=== PATIENT | male | born 1970 | race American Indian/Alaskan Native ===

== ENCOUNTER 2019-04-20 01:04 | Inpatient (IN) | payer BC, OTHER ==
[2019-04-20 01:35] LABS: Basophils # (Auto) 0.1 K/mm3 (0.0-0.1); Basophils % (Auto) 0.7 % (0.0-1.8); Eosinophils # (Auto) 0.1 K/mm3 (0.0-0.4); Eosinophils % (Auto) 1.2 % (0.0-4.3); Hematocrit 39.2 % (35.5-45.6); Hemoglobin 13.3 gm/dl (11.8-15.2); Lymphocytes # (Auto) 1.5 K/mm3 (1.2-5.4); Lymphocytes % (Auto) 18.4 % (13.4-35.0); Mean Corpuscular HGB Conc 34 % (32-34); Mean Corpuscular Volume 93 fl (84-94); Monocytes % (Auto) 12.3 % (0.0-7.3); Platelet Count 346 K/mm3 (140-440); Red Blood Count 4.19 M/mm3 (3.65-5.03); Red Cell Distribution Width 13.8 % (13.2-15.2)
[2019-04-20 01:53] LABS: BUN/Creatinine Ratio 22; Blood Urea Nitrogen 24 mg/dL (9-20); Calcium 9.7 mg/dL (8.4-10.2); Hemolysis Index 17
--- NOTE | 2019-04-20 02:28 | Emergency Department Report ---
ED Chest Pain HPI - General Chief Complaint: Chest Pain Stated Complaint: CHEST PAINS Time Seen by Provider: 04/20/19 02:07 Source: patient Mode of arrival: Ambulatory Limitations: No Limitations - History of Present Illness Initial Comments: 49-year-old male with a past medical history of hypertension presents to the hospital with complaints of left-sided chest pain 3 days. Pain is at the left lateral chest wall and described as sharp and rated 8/10 in intensity. Pain is constant and worse with coughing. Pain is relieved by ibuprofen and pain is currently 0/10 after taking med prior to arrival. He denies pain radiation, shortness of breath, nausea, vomiting, diaphoresis, calf tenderness, leg edema, or history of PE/DVT. Patient states his mother of "heart problems" in her 60s. Patient denies tobacco use but does smoke marijuana. He has never received a stress test. He does have a primary care doctor and has been compliant with his lisinopril for his blood pressure. Patient denies any hemoptysis, night sweats, fever, or recent weight loss. He does not smoke cigarettes. - Related Data Home Medications Medication Instructions Recorded Confirmed Last Taken No Known Home Medications [No 01/08/16 01/08/16 Unknown Reported Home Medications] Allergies Allergy/AdvReac Type Severity Reaction Status Date / Time No Known Allergies Allergy Verified 01/08/16 16:37 Heart Score - HEART Score History: Slightly suspicious EKG: Non-specific Age: 45-65 Risk factors: 1-2 risk factors Troponin: < normal limit HEART Score: 3 ED Review of Systems ROS: Stated complaint: CHEST PAINS Other details as noted in HPI Comment: All other systems reviewed and negative ED Past Medical Hx - Past Medical History Previous Medical History?: Yes Hx Hypertension: Yes - Surgical History Past Surgical History?: No - Social History Smoking Status: Never Smoker Substance Use Type: Marijuana - Medications Home Medications: Home Medications Medication Instructions Recorded Confirmed Last Taken Type No Known Home Medications [No 01/08/16 01/08/16 Unknown History Reported Home Medications] ED Physical Exam - General Limitations: No Limitations - Other Other exam information: General: No limitations, patient is alert in no acute distress Head exam: Atraumatic, normocephalic Eyes exam: Normal appearance ENT: Moist mucous membrane Neck exam: Normal inspection, full range of motion, no meningismus nontender Respiratory exam: Clear to auscultation bilateral, no wheezes, rales, crackles Cardiovascular: Normal rate and rhythm, normal heart sounds, chest wall nontender at this time since patient took an ibuprofen Abdomen: Soft, nondistended, and nontender, with normal bowel sounds, no rebound, or guarding Extremity: Full range of motion normal inspection no deformity, no calf tenderness or leg edema Back: Normal Inspection, full range of motion, no tenderness Neurologic: Alert, oriented x3, cranial nerves intact, no motor or sensory deficit Psychiatric: normal affect, normal mood Skin: Warm, dry, intact ED Course Vital Signs 04/20/19 04/20/19 01:11 02:50 Temperature 98.1 F Pulse Rate 86 Respiratory 18 19 Rate Blood Pressure 117/72 O2 Sat by Pulse 98 96 Oximetry - Reevaluation(s) Reevaluation #1: 04/20/19 05:40 pt had intermittent left sided cp - Consultations Consultation #1: 04/20/19 05:40 Case discussed with lugger is Dr. Simon. Recommends admission to rule out TB ED Medical Decision Making - Lab Data Result diagrams: 04/20/19 01:28 04/20/19 01:17 Lab Results 04/20/19 04/20/19 04/20/19 Range/Units 01:17 01:28 02:30 WBC 8.3 (4.5-11.0) K/mm3 RBC 4.19 (3.65-5.03) M/mm3 Hgb 13.3 (11.8-15.2) gm/dl Hct 39.2 (35.5-45.6) % MCV 93 (84-94) fl MCH 32 (28-32) pg MCHC 34 (32-34) % RDW 13.8 (13.2-15.2) % Plt Count 346 (140-440) K/mm3 Lymph % (Auto) 18.4 (13.4-35.0) % [place] % (Auto) 12.3 H (0.0-7.3) % Eos % (Auto) 1.2 (0.0-4.3) % Baso % (Auto) 0.7 (0.0-1.8) % Lymph # 1.5 (1.2-5.4) K/mm3 [place] # 1.0 H (0.0-0.8) K/mm3 Eos # 0.1 (0.0-0.4) K/mm3 Baso # 0.1 (0.0-0.1) K/mm3 Seg Neutrophils % 67.4 (40.0-70.0) % Seg Neutrophils # 5.6 (1.8-7.7) K/mm3 D-Dimer 393.10 H (0-234) ng/mlDDU Sodium 136 L (137-145) mmol/L Potassium 4.1 (3.6-5.0) mmol/L Chloride 95.7 L (98-107) mmol/L Carbon Dioxide 24 (22-30) mmol/L Anion Gap 20 mmol/L BUN 24 H (9-20) mg/dL Creatinine 1.1 (0.8-1.5) mg/dL Estimated GFR > 60 ml/min BUN/Creatinine Ratio 22 % Glucose 171 H (75-100) mg/dL Calcium 9.7 (8.4-10.2) mg/dL Troponin T < 0.010 (0.00-0.029) ng/mL 04/20/19 Range/Units 04:37 WBC (4.5-11.0) K/mm3 RBC (3.65-5.03) M/mm3 Hgb (11.8-15.2) gm/dl Hct (35.5-45.6) % MCV (84-94) fl MCH (28-32) pg MCHC (32-34) % RDW (13.2-15.2) % Plt Count (140-440) K/mm3 Lymph % (Auto) (13.4-35.0) % [place] % (Auto) (0.0-7.3) % Eos % (Auto) (0.0-4.3) % Baso % (Auto) (0.0-1.8) % Lymph # (1.2-5.4) K/mm3 [place] # (0.0-0.8) K/mm3 Eos # (0.0-0.4) K/mm3 Baso # (0.0-0.1) K/mm3 Seg Neutrophils % (40.0-70.0) % Seg Neutrophils # (1.8-7.7) K/mm3 D-Dimer (0-234) ng/mlDDU Sodium (137-145) mmol/L Potassium (3.6-5.0) mmol/L Chloride (98-107) mmol/L Carbon Dioxide (22-30) mmol/L Anion Gap mmol/L BUN (9-20) mg/dL Creatinine (0.8-1.5) mg/dL Estimated GFR ml/min BUN/Creatinine Ratio % Glucose (75-100) mg/dL Calcium (8.4-10.2) mg/dL Troponin T < 0.010 (0.00-0.029) ng/mL - EKG Data -: EKG Interpreted by De EKG shows normal: sinus rhythm, axis (qrs 85), QRS complexes (qrsd 94), ST-T waves (diffuse mild st elevation, no stemi) Rate: normal - Radiology Data Radiology results: report reviewed PROCEDURE: CT ANGIO CHEST TECHNIQUE: Computerized tomographic angiography of the chest was performed after the IV injection of iodinated nonionic contrast including image processing. The image data was postprocessed using 2-dimensional multiplanar reformatted (MPR) and 3-dimensional (MIP and/or volume rendered) techniques. Automated exposure control, adjustment of mA and/or kV according to patient size, or iterative reconstruction dose optimization techniques were utilized. HISTORY: left sided sharp cp COMPARISONS: None . FINDINGS: Normal caliber main pulmonary artery. Well opacified pulmonary arterial tree. No pulmonary embolism. No pericardial effusion. Thoracic aorta is normal in course and caliber. No periaortic fluid or stranding. No pneumothorax or effusion. In the lingula and left lower lung on axial series 2, images 7, respectively, there are 2 thick-walled cavitary lesions measuring up to 1 cm. A right lung nodule within the minor fissure on axial image 65 measures up to 5 mm and is benign based on location. The central airways are patent. No bronchiectasis. Imaged portion of the upper abdomen is unremarkable. The superficial soft tissues are unremarkable. No acute bony abnormality or worrisome osseous lesions identified. IMPRESSION: No pulmonary embolism. There are 2 relatively thick-walled 1 cm cavitary nodules in the left lung. Most likely etiology is infectious or inflammatory, with malignancy thought less likely. Specific entities to consider include tuberculosis, necrobiotic/rheumatoid nodules, and granulomatosis with polyangiitis. Pulmonology follow-up is suggested. PROCEDURE: XR CHEST 1V AP TECHNIQUE: Chest radiograph single view. HISTORY: Chest Pain COMPARISONS: None . FINDINGS: Heart: Normal. Mediastinum/Vessels: Normal. Lungs/Pleural space: Lungs are expanded. There are no effusions or pneumothoraces. There are no infiltrates. There are 2 discrete nodular densities in the left lung measuring up to [address] may be indicated for further characterization.. Bony thorax: No acute osseous abnormality. Life support devices: None. IMPRESSION: Heart size is normal. Lungs are expanded. There are no effusions or pneumothoraces. There are no infiltrates. There are 2 discrete nodular densities in the left lung measuring up to [address] may be indicated for further characterization. - Medical Decision Making case d/w Dr Alfred segura isolation ordered for possible tb hospitalist informed not signs of stemi. trop neg x 2 - Differential Diagnosis msk pain, pe, mi,unstable angina Critical Care Time: No Critical care attestation.: If time is entered above; I have spent that time in minutes in the direct care of this critically ill patient, excluding procedure time. ED Disposition Clinical Impression: Left-sided chest pain, Cavitary lesion of lung, HTN (hypertension), Marijuana use Disposition: OP ADMIT IP TO THIS HOSP Is pt being admited?: Yes Condition: Stable Time of Disposition: 05:46 (Dr Tavarez/hosp)
--- NOTE | 2019-04-20 02:28 | XRay Report ---
PROCEDURE: XR CHEST 1V AP TECHNIQUE: Chest radiograph single view. HISTORY: Chest Pain COMPARISONS: None . FINDINGS: Heart: Normal. Mediastinum/Vessels: Normal. Lungs/Pleural space: Lungs are expanded. There are no effusions or pneumothoraces. There are no infi ltrates. There are 2 discrete nodular densities in the left lung measuring up to [address] may be ind icated for further characterization.. Bony thorax: No acute osseous abnormality. Life support devices: None. IMPRESSION: Heart size is normal. Lungs are expanded. There are no effusions or pneumothoraces. There are no infiltrates. There are 2 discrete nodular densities in the left lung measuring up to [address] may be indicated fo r further characterization. This document is electronically signed by Judd Ray MD., Apr 20 2019 02:26:49 AM ET
[2019-04-20] MEDS ORDERED: NACL 0.9% 1000 ML 1,000 ML IV ONE (03:58)
--- NOTE | 2019-04-20 05:11 | Cat Scan Report ---
PROCEDURE: CT ANGIO CHEST TECHNIQUE: Computerized tomographic angiography of the chest was performed after the IV injection of iodinated nonionic contrast including image processing. The image data was postprocessed using 2-di mensional multiplanar reformatted (MPR) and 3-dimensional (MIP and/or volume rendered) techniques. Au tomated exposure control, adjustment of mA and/or kV according to patient size, or iterative reconstr uction dose optimization techniques were utilized. HISTORY: left sided sharp cp COMPARISONS: None . FINDINGS: Normal caliber main pulmonary artery. Well opacified pulmonary arterial tree. No pulmonary embolism . No pericardial effusion. Thoracic aorta is normal in course and caliber. No periaortic fluid or stranding. No pneumothorax or effusion. In the lingula and left lower lung on axial series 2, images 7, respecti vely, there are 2 thick-walled cavitary lesions measuring up to 1 cm. A right lung nodule within the minor fissure on axial image 65 measures up to 5 mm and is benign based on location. The central airw ays are patent. No bronchiectasis. Imaged portion of the upper abdomen is unremarkable. The superficial soft tissues are unremarkable. No acute bony abnormality or worrisome osseous lesions identified. IMPRESSION: No pulmonary embolism. There are 2 relatively thick-walled 1 cm cavitary nodules in the left lung. Most likely etiology is i nfectious or inflammatory, with malignancy thought less likely. Specific entities to consider include tuberculosis, necrobiotic/rheumatoid nodules, and granulomatosis with polyangiitis. Pulmonology foll ow-up is suggested. This document is electronically signed by Jun Ruano MD., Apr 20 2019 05:09:51 AM ET
--- NOTE | 2019-04-20 06:19 | History and Physical Report ---
<KRISHNA BABIN - Last Filed: 04/20/19 06:50> History of Present Illness Date of examination: 04/20/19 Date of admission: 04/20/2019 Chief complaint: Chest pain 3 days History of present illness: Patient is a 49-year-old male with PMH of HTN (for wich he takes Lisinopril), who presents to the ER with complaints of chest pain 3 days. Patient states that the pain is relief with ibuprofen, and position changed, it is reproducible when pressing on the left side of the chest. Patient denies any radiation of the pain, fever or chills, he denies nausea, denies vomiting, denies diaphoresis, denies calf tenderness, denies leg pain. Pt states that he had a very heavy work on Tuesday, he lifted a lot of heavy weights including greater than 100 pounds by himself, the pain started the following day. He reports minor cough, denies any acute illness, any history of CAD, diabetes or blood clot, or history of PE/DVT he denies hemoptysis, then once night sweats, denies recent weight loss. Pt denies tobacco use but states that he uses marijuana. Patient had the 60s of the chest which showed the cavitary lesions, he is admitted and placed on TB precautions. Past History Past Medical History: hypertension Past Surgical History: No surgical history Social history: no significant social history Family history: no significant family history Medications and Allergies Allergies Allergy/AdvReac Type Severity Reaction Status Date / Time No Known Allergies Allergy Verified 01/08/16 16:37 Home Medications Medication Instructions Recorded Confirmed Last Taken Type Lisinopril [Zestril TAB] 10 mg PO QDAY 04/20/19 04/20/19 1 Day Ago History ~04/19/19 Review of Systems Cardiovascular: chest pain Respiratory: cough Exam - Constitutional Vitals: Temp Pulse Resp BP Pulse Ox 98.1 F 61 13 133/88 100 04/20/19 01:11 04/20/19 05:30 04/20/19 05:45 04/20/19 05:45 04/20/19 05:45 General appearance: Present: no acute distress - EENT Eyes: Present: PERRL ENT: hearing intact - Respiratory Respiratory effort: normal Respiratory: bilateral: CTA - Cardiovascular Rhythm: regular Heart Sounds: Present: S1 & S2 - Extremities Extremities: no ischemia, No edema Peripheral Pulses: within normal limits - Abdominal General gastrointestinal: Present: non-tender, non-distended Male genitourinary: Present: deferred - Rectal Rectal Exam: deferred - Integumentary Integumentary: Present: clear, warm, dry - Musculoskeletal Musculoskeletal: left sided weakness - Psychiatric Psychiatric: appropriate mood/affect - Neurologic Neurologic: moves all extremities Results - Labs CBC & Chem 7: 04/20/19 01:28 04/20/19 01:17 Labs: Laboratory Last Values WBC 8.3 K/mm3 (4.5-11.0) 04/20/19 01:28 RBC 4.19 M/mm3 (3.65-5.03) 04/20/19 01:28 Hgb 13.3 gm/dl (11.8-15.2) 04/20/19 01:28 Hct 39.2 % (35.5-45.6) 04/20/19 01:28 MCV 93 fl (84-94) 04/20/19 01:28 MCH 32 pg (28-32) 04/20/19 01:28 MCHC 34 % (32-34) 04/20/19 01:28 RDW 13.8 % (13.2-15.2) 04/20/19 01:28 Plt Count 346 K/mm3 (140-440) 04/20/19 01:28 Lymph % (Auto) 18.4 % (13.4-35.0) 04/20/19 01:28 [place] % (Auto) 12.3 % (0.0-7.3) H 04/20/19 01:28 Eos % (Auto) 1.2 % (0.0-4.3) 04/20/19 01:28 Baso % (Auto) 0.7 % (0.0-1.8) 04/20/19 01:28 Lymph # 1.5 K/mm3 (1.2-5.4) 04/20/19 01:28 [place] # 1.0 K/mm3 (0.0-0.8) H 04/20/19 01:28 Eos # 0.1 K/mm3 (0.0-0.4) 04/20/19 01:28 Baso # 0.1 K/mm3 (0.0-0.1) 04/20/19 01:28 Seg Neutrophils % 67.4 % (40.0-70.0) 04/20/19 01:28 Seg Neutrophils # 5.6 K/mm3 (1.8-7.7) 04/20/19 01:28 393.10 ng/mlDDU (0-234) H 04/20/19 02:30 Sodium 136 mmol/L (137-145) L 04/20/19 01:17 Potassium 4.1 mmol/L (3.6-5.0) 04/20/19 01:17 Chloride 95.7 mmol/L (98-107) L 04/20/19 01:17 Carbon Dioxide 24 mmol/L (22-30) 04/20/19 01:17 20 mmol/L 04/20/19 01:17 BUN 24 mg/dL (9-20) H 04/20/19 01:17 1.1 mg/dL (0.8-1.5) 04/20/19 01:17 Estimated GFR > 60 ml/min 04/20/19 01:17 22 % 04/20/19 01:17 Glucose 171 mg/dL (75-100) H 04/20/19 01:17 Calcium 9.7 mg/dL (8.4-10.2) 04/20/19 01:17 < 0.010 ng/mL (0.00-0.029) 04/20/19 04:37 Assessment and Plan Assessment and plan: 1. Atypical chest pain (rule out pericarditis versus costochondritis) 2. Hypertension (stable 3. Cavitary lesion (r/o TB) Plan: Patient is admitted for chest pain Cardiac enzymes every 6 hours 3 Morphine when necessary for pain AFB to r/o TB Patient counselled on HIV testing Patient will need ID consult if it is positive Plan pf care was discussed with patient, voiced understanding Advance Directives: Yes VTE prophylaxis?: Chemical Contraindication Mechanical VTE Prophylaxis: Contraindicated Plan of care discussed with patient/family: Yes <MAL CRAMER - Last Filed: 04/21/19 03:14> History of Present Illness Date of admission: 04/20/19 06:28 Medications and Allergies Active Meds: Active Medications Acetaminophen (Tylenol) 650 mg PO Q4H PRN PRN Reason: Pain MILD(1-3)/Fever >100.5/PELAYO Aspirin (Ecotrin) 325 mg PO QDAY [place]ARA Piperacillin Sod/Tazobactam Sod (Zosyn/Ns 4.5gm/100ml) 4.5 gm in 100 mls @ 200 mls/hr IV Q8HR [facility]; Protocol Last Admin: 04/20/19 21:26 Dose: 200 mls/hr Documented by: Morphine Sulfate (Morphine) 2 mg IV Q5MIN PRN PRN Reason: Chest Pain unrelieved by NTG Last Admin: 04/20/19 17:30 Dose: 2 mg Documented by: Nitroglycerin (Nitrostat) 0.4 mg SL Q5M PRN PRN Reason: Chest Pain Ondansetron HCl (Zofran) 4 mg IV Q8H PRN PRN Reason: Nausea And Vomiting Sodium Chloride (Sodium Chloride Flush Syringe 10 Ml) 10 ml IV BID [facility] Last Admin: 04/20/19 21:26 Dose: 10 ml Documented by: Sodium Chloride (Sodium Chloride Flush Syringe 10 Ml) 10 ml IV PRN PRN PRN Reason: LINE FLUSH Sodium Chloride (Sodium Chloride Flush Syringe 10 Ml) 10 ml IV PRN PRN PRN Reason: LINE FLUSH Exam - Constitutional Vitals: Temp Pulse Resp BP Pulse Ox 98.8 F 61 16 115/79 98 04/20/19 22:52 04/20/19 23:52 04/20/19 22:52 04/20/19 22:52 04/20/19 22:52 Results - Labs CBC & Chem 7: 04/20/19 06:51 04/20/19 06:51 Labs: Laboratory Last Values WBC 8.2 K/mm3 (4.5-11.0) 04/20/19 06:51 RBC 3.90 M/mm3 (3.65-5.03) 04/20/19 06:51 Hgb 12.5 gm/dl (11.8-15.2) 04/20/19 06:51 Hct 35.8 % (35.5-45.6) 04/20/19 06:51 MCV 92 fl (84-94) 04/20/19 06:51 MCH 32 pg (28-32) 04/20/19 06:51 MCHC 35 % (32-34) H 04/20/19 06:51 RDW 13.9 % (13.2-15.2) 04/20/19 06:51 Plt Count 313 K/mm3 (140-440) 04/20/19 06:51 Lymph % (Auto) 28.7 % (13.4-35.0) 04/20/19 06:51 [place] % (Auto) 14.8 % (0.0-7.3) H 04/20/19 06:51 Eos % (Auto) 1.8 % (0.0-4.3) 04/20/19 06:51 Baso % (Auto) 0.9 % (0.0-1.8) 04/20/19 06:51 Lymph # 2.3 K/mm3 (1.2-5.4) 04/20/19 06:51 [place] # 1.2 K/mm3 (0.0-0.8) H 04/20/19 06:51 Eos # 0.1 K/mm3 (0.0-0.4) 04/20/19 06:51 Baso # 0.1 K/mm3 (0.0-0.1) 04/20/19 06:51 Seg Neutrophils % 53.8 % (40.0-70.0) 04/20/19 06:51 Seg Neutrophils # 4.4 K/mm3 (1.8-7.7) 04/20/19 06:51 393.10 ng/mlDDU (0-234) H 04/20/19 02:30 Sodium 136 mmol/L (137-145) L 04/20/19 06:51 Potassium 4.0 mmol/L (3.6-5.0) 04/20/19 06:51 Chloride 98.5 mmol/L (98-107) 04/20/19 06:51 Carbon Dioxide 24 mmol/L (22-30) 04/20/19 06:51 18 mmol/L 04/20/19 06:51 BUN 23 mg/dL (9-20) H 04/20/19 06:51 1.1 mg/dL (0.8-1.5) 04/20/19 06:51 Estimated GFR > 60 ml/min 04/20/19 06:51 21 % 04/20/19 06:51 Glucose 92 mg/dL (75-100) 04/20/19 06:51 5.8 % (4-6) 04/20/19 06:51 Calcium 8.9 mg/dL (8.4-10.2) 04/20/19 06:51 < 0.010 ng/mL (0.00-0.029) 04/20/19 17:30 Triglycerides 48 mg/dL (2-149) 04/20/19 06:51 Cholesterol 158 mg/dL (50-199) 04/20/19 06:51 102 mg/dL (50-130) 04/20/19 06:51 54 mg/dL (40-59) 04/20/19 06:51 2.92 % 04/20/19 06:51 Assessment and Plan Assessment and plan: I personally discussed the patient with the ASSISTANT CHIEF NURSING OFFICER-C. I agree with the above assessment and plan
[2019-04-20] MEDS ORDERED: NITROSTAT SL PRN (06:28)
[2019-04-20] MEDS ORDERED: SODIUM CHLORIDE FLUSH SYRINGE 10 ML IV PRN ×2 (06:28)
[2019-04-20] MEDS ORDERED: TYLENOL PO PRN (06:28)
[2019-04-20] MEDS ORDERED: ZOFRAN IV PRN (06:28)
[2019-04-20 07:09] LABS: Basophils # (Auto) 0.1 K/mm3 (0.0-0.1); Basophils % (Auto) 0.9 % (0.0-1.8); Eosinophils # (Auto) 0.1 K/mm3 (0.0-0.4); Eosinophils % (Auto) 1.8 % (0.0-4.3); Hematocrit 35.8 % (35.5-45.6); Hemoglobin 12.5 gm/dl (11.8-15.2); Lymphocytes # (Auto) 2.3 K/mm3 (1.2-5.4); Lymphocytes % (Auto) 28.7 % (13.4-35.0); Mean Corpuscular HGB Conc 35 % (32-34); Mean Corpuscular Volume 92 fl (84-94); Monocytes # (Auto) 1.2 K/mm3 (0.0-0.8); Monocytes % (Auto) 14.8 % (0.0-7.3); Platelet Count 313 K/mm3 (140-440); Red Cell Distribution Width 13.9 % (13.2-15.2)
[2019-04-20 07:34] LABS: BUN/Creatinine Ratio 21; Blood Urea Nitrogen 23 mg/dL (9-20); Calcium 8.9 mg/dL (8.4-10.2); Chol/HDL Ratio 2.92 %; HDL Cholesterol 54 mg/dL (40-59); Hemolysis Index 10; LDL Cholesterol,Direct 102 mg/dL (50-130)
[2019-04-20] MEDS: SODIUM CHLORIDE FLUSH SYRINGE 10 ML IV SCH ×2 (10:20→21:26)
--- NOTE | 2019-04-20 10:46 | Progress Note ---
Assessment and Plan Assessment and plan: Atypical chest pain. Etiology likely secondary to costochondritis. Pain is reproducible with palpation. Hypertension. Continue antihypertensive medications. Cavitary lesion. Pulmonary consultation pending. Continue isolation. Start empiric IV antibiotics. Consider ID consultation. History Interval history: Patient is a 49-year-old male with PMH of HTN (for wich he takes Lisinopril), who presents to the ER with complaints of chest pain 3 days. Pain is reproducible with palpation to the left chest wall. Hospitalist Physical - Constitutional Vitals: Temp Pulse Resp BP Pulse Ox 98.1 F 61 13 133/88 100 04/20/19 01:11 04/20/19 05:30 04/20/19 05:45 04/20/19 05:45 04/20/19 05:45 General appearance: Present: no acute distress - EENT Eyes: Present: PERRL, EOM intact ENT: hearing intact, clear oral mucosa, dentition normal - Neck Neck: Present: supple, normal ROM - Respiratory Respiratory effort: normal Respiratory: bilateral: CTA - Cardiovascular Rhythm: regular Heart Sounds: Present: S1 & S2. Absent: gallop, rub - Extremities Extremities: no ischemia, No edema, Full ROM - Abdominal General gastrointestinal: soft, non-tender, non-distended, normal bowel sounds - Integumentary Integumentary: Present: clear, warm, dry - Neurologic Neurologic: CNII-XII intact, moves all extremities Results - Labs CBC & Chem 7: 04/20/19 06:51 04/20/19 06:51 Labs: Laboratory Last Values WBC 8.2 K/mm3 (4.5-11.0) 04/20/19 06:51 RBC 3.90 M/mm3 (3.65-5.03) 04/20/19 06:51 Hgb 12.5 gm/dl (11.8-15.2) 04/20/19 06:51 Hct 35.8 % (35.5-45.6) 04/20/19 06:51 MCV 92 fl (84-94) 04/20/19 06:51 MCH 32 pg (28-32) 04/20/19 06:51 MCHC 35 % (32-34) H 04/20/19 06:51 RDW 13.9 % (13.2-15.2) 04/20/19 06:51 Plt Count 313 K/mm3 (140-440) 04/20/19 06:51 Lymph % (Auto) 28.7 % (13.4-35.0) 04/20/19 06:51 [place] % (Auto) 14.8 % (0.0-7.3) H 04/20/19 06:51 Eos % (Auto) 1.8 % (0.0-4.3) 04/20/19 06:51 Baso % (Auto) 0.9 % (0.0-1.8) 04/20/19 06:51 Lymph # 2.3 K/mm3 (1.2-5.4) 04/20/19 06:51 [place] # 1.2 K/mm3 (0.0-0.8) H 04/20/19 06:51 Eos # 0.1 K/mm3 (0.0-0.4) 04/20/19 06:51 Baso # 0.1 K/mm3 (0.0-0.1) 04/20/19 06:51 Seg Neutrophils % 53.8 % (40.0-70.0) 04/20/19 06:51 Seg Neutrophils # 4.4 K/mm3 (1.8-7.7) 04/20/19 06:51 393.10 ng/mlDDU (0-234) H 04/20/19 02:30 Sodium 136 mmol/L (137-145) L 04/20/19 06:51 Potassium 4.0 mmol/L (3.6-5.0) 04/20/19 06:51 Chloride 98.5 mmol/L (98-107) 04/20/19 06:51 Carbon Dioxide 24 mmol/L (22-30) 04/20/19 06:51 18 mmol/L 04/20/19 06:51 BUN 23 mg/dL (9-20) H 04/20/19 06:51 1.1 mg/dL (0.8-1.5) 04/20/19 06:51 Estimated GFR > 60 ml/min 04/20/19 06:51 21 % 04/20/19 06:51 Glucose 92 mg/dL (75-100) 04/20/19 06:51 5.8 % (4-6) 04/20/19 06:51 Calcium 8.9 mg/dL (8.4-10.2) 04/20/19 06:51 < 0.010 ng/mL (0.00-0.029) 04/20/19 06:51 Triglycerides 48 mg/dL (2-149) 04/20/19 06:51 Cholesterol 158 mg/dL (50-199) 04/20/19 06:51 102 mg/dL (50-130) 04/20/19 06:51 54 mg/dL (40-59) 04/20/19 06:51 2.92 % 04/20/19 06:51 Active Medications - Current Medications Current Medications: Generic Name Dose Route Start Last Admin Trade Name Freq PRN Reason Stop Dose Admin Acetaminophen 650 mg 04/20/19 06:28 Tylenol PO Q4H PRN Pain MILD(1-3)/Fever >100.5/PELAYO Aspirin 325 mg 04/21/19 10:00 Ecotrin PO QDAY [facility] Morphine Sulfate 2 mg 04/20/19 06:28 Morphine IV Q5MIN PRN Chest Pain unrelieved by NTG Nitroglycerin 0.4 mg 04/20/19 06:28 Nitrostat SL Q5M PRN Chest Pain Ondansetron HCl 4 mg 04/20/19 06:28 Zofran IV Q8H PRN Nausea And Vomiting Sodium Chloride 10 ml 04/20/19 10:00 Sodium Chloride Flush Syringe 10 Ml IV BID KYARA Sodium Chloride 10 ml 04/20/19 06:28 Sodium Chloride Flush Syringe 10 Ml IV PRN PRN LINE FLUSH Sodium Chloride 10 ml 04/20/19 06:28 Sodium Chloride Flush Syringe 10 Ml IV PRN PRN LINE FLUSH
--- NOTE | 2019-04-20 13:44 | Consultation ---
History of Present Illness Consult date: 04/20/19 Reason for consult: chest pain, abnormal CXR/CT History of present illness: 49-year-old -[place] male, admitted to the hospital with history of chest pain and associated abnormal chest CT scan. The patient reports that he has been working as usual in recent weeks but started with a left-sided almost pleuritic stabbing pain about 2 days ago. This happened while working at [employer] and he thought that this was related to some heavy lifting that day. Symptoms disappear after Advil and [id number] pain medication but they recurred yesterday. He has an occasional cough but no expectoration and he relates this to the fact that he smokes chronically. No hemoptysis reported. No weight loss changes. Chest CT scan was performed at the ER for pain evaluation. Scan was remarkable for 2 small cavitary nodules in the left side subpleural based. Infection or inflammatory process including TB could not be rule out and the patient was admitted for further evaluation. On further review, the patient denies any sinus problems. No new rash. No joint problems. He does report recently that he had a lesion on the inner right side of his mouth that has been sore for a week or two. Past History Past Medical History: hypertension Past Surgical History: No surgical history Social history: no significant social history, other (smokes marijuana) Family history: no significant family history Medications and Allergies Allergies Allergy/AdvReac Type Severity Reaction Status Date / Time No Known Allergies Allergy Verified 01/08/16 16:37 Home Medications Medication Instructions Recorded Confirmed Last Taken Type No Known Home Medications [No 01/08/16 01/08/16 Unknown History Reported Home Medications] Active Meds: Active Medications Acetaminophen (Tylenol) 650 mg PO Q4H PRN PRN Reason: Pain MILD(1-3)/Fever >100.5/PELAYO Aspirin (Ecotrin) 325 mg PO QDAY KYARA Piperacillin Sod/Tazobactam Sod (Zosyn/Ns 4.5gm/100ml) 4.5 gm in 100 mls @ 200 mls/hr IV Q8HR KYARA; Protocol Morphine Sulfate (Morphine) 2 mg IV Q5MIN PRN PRN Reason: Chest Pain unrelieved by NTG Nitroglycerin (Nitrostat) 0.4 mg SL Q5M PRN PRN Reason: Chest Pain Ondansetron HCl (Zofran) 4 mg IV Q8H PRN PRN Reason: Nausea And Vomiting Sodium Chloride (Sodium Chloride Flush Syringe 10 Ml) 10 ml IV BID KYARA Last Admin: 04/20/19 10:20 Dose: 10 ml Documented by: Sodium Chloride (Sodium Chloride Flush Syringe 10 Ml) 10 ml IV PRN PRN PRN Reason: LINE FLUSH Sodium Chloride (Sodium Chloride Flush Syringe 10 Ml) 10 ml IV PRN PRN PRN Reason: LINE FLUSH Review of Systems Constitutional: no weight loss, no fever, no chills, no night sweats, no anorexia, no fatigue, no weakness Ears, nose, mouth and throat: swelling in mouth (see HPI) Cardiovascular: no chest pain, no orthopnea, no palpitations, no rapid/irregular heart beat, no edema, no syncope Respiratory: cough Gastrointestinal: no abdominal pain, no nausea, no vomiting, no diarrhea, no melena, no hematochezia Genitourinary Male: no dysuria, no hematuria, no flank pain, no discharge Musculoskeletal: no neck stiffness, no neck pain, no shooting arm pain, no arm numbness/tingling Physical Examination Vital signs: Vital Signs Temp Pulse Resp BP Pulse Ox 98.1 F 86 18 117/72 98 04/20/19 01:11 04/20/19 01:11 04/20/19 01:11 04/20/19 01:11 04/20/19 01:11 General appearance: no acute distress, alert Eyes: non-icteric ENT: oropharynx moist, other (right-sided inner buccal lesion close to 2th molar area. Some secretions noted) Cardiovascular: regular rate and rhythm Gastrointestinal: normoactive bowel sounds, non-distended Extremities: no cyanosis, no edema Results - Laboratory Findings CBC and BMP: 04/20/19 06:51 04/20/19 06:51 PT/INR, D-dimer 393.10 ng/mlDDU (0-234) H 04/20/19 02:30 Abnormal lab findings: Abnormal Labs 04/20/19 04/20/19 04/20/19 01:17 01:28 02:30 MCHC [place] % (Auto) 12.3 H [place] # 1.0 H D-Dimer 393.10 H Sodium 136 L Chloride 95.7 L BUN 24 H Glucose 171 H 04/20/19 04/20/19 06:51 06:51 MCHC 35 H [place] % (Auto) 14.8 H [place] # 1.2 H D-Dimer Sodium 136 L Chloride BUN 23 H Glucose - Diagnostic Findings Chest x-ray: report reviewed, image reviewed CT scan - chest: report reviewed, image reviewed Assessment and Plan Early cavitary nodules. Differential diagnosis is extensive but in view of clinical finding this could be early low abscesses, secondary to aspiration. I think TB less likely. Necrotizing granulomatous vasculitis, nodular sarcoid are also in the differential diagnosis Ana-gingival abscess THC abuse Recommendations Buccal swap/culture Sputum AFB smear and culture 3 Consider discontinue respiratory isolation, once smears are negative 3 Standard bacterial sputum culture Fungal culture PPD Consider HIV testing ANCA testing MITZI testing If no history of allergy, consider clindamycin or Unasyn Findings discussed with the patient detailed. All questions answered.
[2019-04-20] MEDS: ZOSYN/NS 4.5GM/100ML 4.5 GM/100 ML VIAL IV SCH ×2 (16:32→21:26)
[2019-04-20] MEDS: MORPHINE IV PRN (17:30)
[2019-04-21] MEDS: ZOSYN/NS 4.5GM/100ML 4.5 GM/100 ML VIAL IV SCH ×3 (05:42→22:07)
[2019-04-21 06:18] LABS: Basophils % (Auto) 0.4 % (0.0-1.8); Eosinophils # (Auto) 0.1 K/mm3 (0.0-0.4); Eosinophils % (Auto) 2.3 % (0.0-4.3); Hematocrit 36.8 % (35.5-45.6); Hemoglobin 12.6 gm/dl (11.8-15.2); Lymphocytes # (Auto) 1.5 K/mm3 (1.2-5.4); Lymphocytes % (Auto) 22.8 % (13.4-35.0); Mean Corpuscular HGB Conc 34 % (32-34); Mean Corpuscular Volume 93 fl (84-94); Monocytes % (Auto) 14.9 % (0.0-7.3); Platelet Count 345 K/mm3 (140-440); Red Blood Count 3.97 M/mm3 (3.65-5.03); Red Cell Distribution Width 13.6 % (13.2-15.2)
[2019-04-21 06:36] LABS: BUN/Creatinine Ratio 17; Blood Urea Nitrogen 15 mg/dL (9-20); Calcium 9.2 mg/dL (8.4-10.2); Hemolysis Index 0
[2019-04-21] MEDS: MORPHINE IV PRN (08:49)
--- NOTE | 2019-04-21 10:06 | Progress Note ---
Assessment and Plan Early cavitary nodules. Differential diagnosis is extensive but in view of clinical finding this could be early lung abscesses, secondary to aspiration. I think TB less likely, but needs PPD and AFB smears for further review. Necrotizing granulomatous vasculitis, nodular sarcoid workup ordered Ana-gingival abscess THC abuse Recommendations Buccal swap/culture Sputum AFB smear and culture 3 PPD not order on chart, will order myself or Quantiferon DC respiratory isolation, once smears are negative 3 Standard bacterial sputum culture Fungal culture Consider HIV testing ANCA testing MITZI testing Continue Zosyn Findings discussed with the patient detailed. All questions answered. Subjective Date of service: 04/21/19 Principal diagnosis: pulmonary cavitary nodules, suspected aspiration/abscess Interval history: No fever or chest complains Objective Vital Signs - 12hr 04/20/19 04/20/19 04/21/19 22:52 23:52 03:33 Temperature 98.8 F 98.3 F Pulse Rate 65 61 62 Respiratory 16 18 Rate Blood Pressure 115/79 110/70 O2 Sat by Pulse 98 97 Oximetry 04/21/19 08:03 Temperature 98.2 F Pulse Rate 59 L Respiratory 24 Rate Blood Pressure 113/70 O2 Sat by Pulse 97 Oximetry Constitutional: no acute distress, alert Eyes: non-icteric ENT: oropharynx moist, other (right-sided inner buccal lesion close to 2th molar area. Some secretions noted) Neck: no JVD Ascultation: Bilateral: clear Cardiovascular: regular rate and rhythm Gastrointestinal: normoactive bowel sounds, non-distended Extremities: no cyanosis, no edema CBC and BMP: 04/21/19 05:45 04/21/19 05:45 ABG, PT/INR, D-dimer: PT/INR, D-dimer 393.10 ng/mlDDU (0-234) H 04/20/19 02:30 Abnormal lab findings: Abnormal Labs 04/20/19 04/20/19 04/20/19 01:17 01:28 02:30 MCHC [place] % (Auto) 12.3 H [place] # 1.0 H D-Dimer 393.10 H Sodium 136 L Chloride 95.7 L BUN 24 H Glucose 171 H 04/20/19 04/20/19 04/21/19 06:51 06:51 05:45 MCHC 35 H [place] % (Auto) 14.8 H 14.9 H [place] # 1.2 H 1.0 H D-Dimer Sodium 136 L Chloride BUN 23 H Glucose
[2019-04-21] MEDS: SODIUM CHLORIDE FLUSH SYRINGE 10 ML IV SCH ×2 (10:29→22:20)
[2019-04-21] MEDS: ECOTRIN PO SCH (10:34)
--- NOTE | 2019-04-21 11:02 | Progress Note ---
Assessment and Plan Assessment and plan: Atypical chest pain. Etiology likely secondary to costochondritis. Pain is reproducible with palpation. Hypertension. Continue antihypertensive medications. Cavitary lesion. Pulmonary following continue isolation. Continue empiric IV antibiotics. Consider ID consultation. Buccal swap/culture. Sputum AFB smear and culture 3. PPD ordered. DC respiratory isolation, once smears are negative 3 History Interval history: Patient is a 49-year-old male with PMH of HTN (for wich he takes Lisinopril), who presents to the ER with complaints of chest pain 3 days. Pain is reproducible with palpation to the left chest wall. Hospitalist Physical - Constitutional Vitals: Temp Pulse Resp BP Pulse Ox 98.2 F 59 L 24 113/70 97 04/21/19 08:03 04/21/19 08:03 04/21/19 08:03 04/21/19 08:03 04/21/19 08:03 General appearance: Present: no acute distress - EENT Eyes: Present: PERRL, EOM intact ENT: hearing intact, clear oral mucosa, dentition normal - Neck Neck: Present: supple, normal ROM - Respiratory Respiratory effort: normal Respiratory: bilateral: CTA - Cardiovascular Rhythm: regular Heart Sounds: Present: S1 & S2. Absent: gallop, rub - Extremities Extremities: no ischemia, No edema, Full ROM - Abdominal General gastrointestinal: soft, non-tender, non-distended, normal bowel sounds - Integumentary Integumentary: Present: clear, warm, dry - Neurologic Neurologic: CNII-XII intact, moves all extremities Results - Labs CBC & Chem 7: 04/21/19 05:45 04/21/19 05:45 Labs: Laboratory Last Values WBC 6.4 K/mm3 (4.5-11.0) 04/21/19 05:45 RBC 3.97 M/mm3 (3.65-5.03) 04/21/19 05:45 Hgb 12.6 gm/dl (11.8-15.2) 04/21/19 05:45 Hct 36.8 % (35.5-45.6) 04/21/19 05:45 MCV 93 fl (84-94) 04/21/19 05:45 MCH 32 pg (28-32) 04/21/19 05:45 MCHC 34 % (32-34) 04/21/19 05:45 RDW 13.6 % (13.2-15.2) 04/21/19 05:45 Plt Count 345 K/mm3 (140-440) 04/21/19 05:45 Lymph % (Auto) 22.8 % (13.4-35.0) 04/21/19 05:45 [place] % (Auto) 14.9 % (0.0-7.3) H 04/21/19 05:45 Eos % (Auto) 2.3 % (0.0-4.3) 04/21/19 05:45 Baso % (Auto) 0.4 % (0.0-1.8) 04/21/19 05:45 Lymph # 1.5 K/mm3 (1.2-5.4) 04/21/19 05:45 [place] # 1.0 K/mm3 (0.0-0.8) H 04/21/19 05:45 Eos # 0.1 K/mm3 (0.0-0.4) 04/21/19 05:45 Baso # 0.0 K/mm3 (0.0-0.1) 04/21/19 05:45 Seg Neutrophils % 59.6 % (40.0-70.0) 04/21/19 05:45 Seg Neutrophils # 3.8 K/mm3 (1.8-7.7) 04/21/19 05:45 393.10 ng/mlDDU (0-234) H 04/20/19 02:30 Sodium 139 mmol/L (137-145) 04/21/19 05:45 Potassium 4.3 mmol/L (3.6-5.0) 04/21/19 05:45 Chloride 102.1 mmol/L (98-107) 04/21/19 05:45 Carbon Dioxide 26 mmol/L (22-30) 04/21/19 05:45 15 mmol/L 04/21/19 05:45 BUN 15 mg/dL (9-20) 04/21/19 05:45 0.9 mg/dL (0.8-1.5) 04/21/19 05:45 Estimated GFR > 60 ml/min 04/21/19 05:45 17 % 04/21/19 05:45 Glucose 96 mg/dL (75-100) 04/21/19 05:45 5.8 % (4-6) 04/20/19 06:51 Calcium 9.2 mg/dL (8.4-10.2) 04/21/19 05:45 < 0.010 ng/mL (0.00-0.029) 04/20/19 17:30 Triglycerides 48 mg/dL (2-149) 04/20/19 06:51 Cholesterol 158 mg/dL (50-199) 04/20/19 06:51 102 mg/dL (50-130) 04/20/19 06:51 54 mg/dL (40-59) 04/20/19 06:51 2.92 % 04/20/19 06:51 Active Medications - Current Medications Current Medications: Generic Name Dose Route Start Last Admin Trade Name Freq PRN Reason Stop Dose Admin Acetaminophen 650 mg 04/20/19 06:28 Tylenol PO Q4H PRN Pain MILD(1-3)/Fever >100.5/PELAYO Aspirin 325 mg 04/21/19 10:00 04/21/19 10:34 Ecotrin PO 325 mg QDAY KYARA Administration Piperacillin Sod/Tazobactam Sod 4.5 gm in 100 mls @ 200 mls/hr 04/20/19 14:00 04/21/19 05:42 Zosyn/Ns 4.5gm/100ml IV 200 mls/hr Q8HR KYARA Administration Protocol Morphine Sulfate 2 mg 04/20/19 06:28 04/21/19 08:49 Morphine IV 2 mg Q5MIN PRN Administration Chest Pain unrelieved by NTG Nitroglycerin 0.4 mg 04/20/19 06:28 Nitrostat SL Q5M PRN Chest Pain Ondansetron HCl 4 mg 04/20/19 06:28 Zofran IV Q8H PRN Nausea And Vomiting Sodium Chloride 10 ml 04/20/19 10:00 04/21/19 10:29 Sodium Chloride Flush Syringe 10 Ml IV Not Given BID KYARA Sodium Chloride 10 ml 04/20/19 06:28 Sodium Chloride Flush Syringe 10 Ml IV PRN PRN LINE FLUSH Sodium Chloride 10 ml 04/20/19 06:28 Sodium Chloride Flush Syringe 10 Ml IV PRN PRN LINE FLUSH
[2019-04-22] MEDS: ZOSYN/NS 4.5GM/100ML 4.5 GM/100 ML VIAL IV SCH ×3 (05:28→22:27)
[2019-04-22] MEDS: MORPHINE IV PRN (06:07)
[2019-04-22] MEDS: ECOTRIN PO SCH (09:41)
[2019-04-22] MEDS: SODIUM CHLORIDE FLUSH SYRINGE 10 ML IV SCH ×2 (09:42→22:27)
--- NOTE | 2019-04-22 10:36 | Progress Note ---
Assessment and Plan Early cavitary nodules. Differential diagnosis is extensive but in view of clinical finding this could be early lung abscesses, secondary to aspiration. I'll see any sputum collection attempts so we will reorder this. Ana-gingival abscess THC abuse Recommendations Buccal swap/culture Induced nebulizers sputum 2 today and supple for AFB smear and culture 3 PPD not done, TB Quantiferon supple yesterday DC respiratory isolation, once smears are negative 3 Consider HIV testing ANCA testing MITZI testing Continue Zosyn, may be switched to by mouth Augmentin or clindamycin Findings discussed with the patient detailed. All questions answered. Subjective Date of service: 04/22/19 Principal diagnosis: pulmonary cavitary nodules, suspected aspiration/abscess Interval history: No fever or chest complains cough is nonproductive Objective Vital Signs - 12hr 04/21/19 04/22/19 04/22/19 23:04 03:49 08:11 Temperature 98.6 F 98.5 F 98.5 F Pulse Rate 66 66 69 Respiratory 18 16 20 Rate Blood Pressure 105/77 124/92 113/82 O2 Sat by Pulse 99 100 100 Oximetry 04/22/19 09:47 Temperature Pulse Rate Respiratory Rate Blood Pressure O2 Sat by Pulse 100 Oximetry Constitutional: no acute distress, alert Eyes: non-icteric ENT: oropharynx moist, other (right-sided inner buccal lesion close to 2th molar area. ) Neck: no JVD Ascultation: Bilateral: clear Cardiovascular: regular rate and rhythm Gastrointestinal: normoactive bowel sounds, non-distended Extremities: no cyanosis, no edema CBC and BMP: 04/21/19 05:45 04/21/19 05:45 ABG, PT/INR, D-dimer: PT/INR, D-dimer 393.10 ng/mlDDU (0-234) H 04/20/19 02:30 Abnormal lab findings: Abnormal Labs 04/20/19 04/20/19 04/20/19 01:17 01:28 02:30 MCHC [place] % (Auto) 12.3 H [place] # 1.0 H D-Dimer 393.10 H Sodium 136 L Chloride 95.7 L BUN 24 H Glucose 171 H 04/20/19 04/20/19 04/21/19 06:51 06:51 05:45 MCHC 35 H [place] % (Auto) 14.8 H 14.9 H [place] # 1.2 H 1.0 H D-Dimer Sodium 136 L Chloride BUN 23 H Glucose
--- NOTE | 2019-04-22 10:44 | Progress Note ---
Assessment and Plan Assessment and plan: Atypical chest pain. Etiology likely secondary to costochondritis. Pain is reproducible with palpation. Hypertension. Continue antihypertensive medications. Cavitary lesion. Pulmonary following continue isolation. Continue empiric IV antibiotics. Consider ID consultation. Buccal swap/culture. Sputum AFB smear and culture 3. PPD ordered. DC respiratory isolation, once smears are negative 3 History Interval history: Patient is a 49-year-old male with PMH of HTN (for wich he takes Lisinopril), who presents to the ER with complaints of chest pain 3 days. Pain is reproducible with palpation to the left chest wall. Hospitalist Physical - Constitutional Vitals: Temp Pulse Resp BP Pulse Ox 98.5 F 69 20 113/82 100 04/22/19 08:11 04/22/19 08:11 04/22/19 08:11 04/22/19 08:11 04/22/19 09:47 General appearance: Present: no acute distress - EENT Eyes: Present: PERRL, EOM intact ENT: hearing intact, clear oral mucosa, dentition normal - Neck Neck: Present: supple, normal ROM - Respiratory Respiratory effort: normal Respiratory: bilateral: CTA - Cardiovascular Rhythm: regular Heart Sounds: Present: S1 & S2. Absent: gallop, rub - Extremities Extremities: no ischemia, No edema, Full ROM - Abdominal General gastrointestinal: soft, non-tender, non-distended, normal bowel sounds - Integumentary Integumentary: Present: clear, warm, dry - Neurologic Neurologic: CNII-XII intact, moves all extremities Results - Labs CBC & Chem 7: 04/21/19 05:45 04/21/19 05:45 Labs: Laboratory Last Values WBC 6.4 K/mm3 (4.5-11.0) 04/21/19 05:45 RBC 3.97 M/mm3 (3.65-5.03) 04/21/19 05:45 Hgb 12.6 gm/dl (11.8-15.2) 04/21/19 05:45 Hct 36.8 % (35.5-45.6) 04/21/19 05:45 MCV 93 fl (84-94) 04/21/19 05:45 MCH 32 pg (28-32) 04/21/19 05:45 MCHC 34 % (32-34) 04/21/19 05:45 RDW 13.6 % (13.2-15.2) 04/21/19 05:45 Plt Count 345 K/mm3 (140-440) 04/21/19 05:45 Lymph % (Auto) 22.8 % (13.4-35.0) 04/21/19 05:45 [place] % (Auto) 14.9 % (0.0-7.3) H 04/21/19 05:45 Eos % (Auto) 2.3 % (0.0-4.3) 04/21/19 05:45 Baso % (Auto) 0.4 % (0.0-1.8) 04/21/19 05:45 Lymph # 1.5 K/mm3 (1.2-5.4) 04/21/19 05:45 [place] # 1.0 K/mm3 (0.0-0.8) H 04/21/19 05:45 Eos # 0.1 K/mm3 (0.0-0.4) 04/21/19 05:45 Baso # 0.0 K/mm3 (0.0-0.1) 04/21/19 05:45 Seg Neutrophils % 59.6 % (40.0-70.0) 04/21/19 05:45 Seg Neutrophils # 3.8 K/mm3 (1.8-7.7) 04/21/19 05:45 393.10 ng/mlDDU (0-234) H 04/20/19 02:30 Sodium 139 mmol/L (137-145) 04/21/19 05:45 Potassium 4.3 mmol/L (3.6-5.0) 04/21/19 05:45 Chloride 102.1 mmol/L (98-107) 04/21/19 05:45 Carbon Dioxide 26 mmol/L (22-30) 04/21/19 05:45 15 mmol/L 04/21/19 05:45 BUN 15 mg/dL (9-20) 04/21/19 05:45 0.9 mg/dL (0.8-1.5) 04/21/19 05:45 Estimated GFR > 60 ml/min 04/21/19 05:45 17 % 04/21/19 05:45 Glucose 96 mg/dL (75-100) 04/21/19 05:45 5.8 % (4-6) 04/20/19 06:51 Calcium 9.2 mg/dL (8.4-10.2) 04/21/19 05:45 < 0.010 ng/mL (0.00-0.029) 04/20/19 17:30 Triglycerides 48 mg/dL (2-149) 04/20/19 06:51 Cholesterol 158 mg/dL (50-199) 04/20/19 06:51 102 mg/dL (50-130) 04/20/19 06:51 54 mg/dL (40-59) 04/20/19 06:51 2.92 % 04/20/19 06:51 Active Medications - Current Medications Current Medications: Generic Name Dose Route Start Last Admin Trade Name Freq PRN Reason Stop Dose Admin Acetaminophen 650 mg 04/20/19 06:28 Tylenol PO Q4H PRN Pain MILD(1-3)/Fever >100.5/PELAYO Aspirin 325 mg 04/21/19 10:00 04/22/19 09:41 Ecotrin PO 325 mg QDAY KYARA Administration Piperacillin Sod/Tazobactam Sod 4.5 gm in 100 mls @ 200 mls/hr 04/20/19 14:00 04/22/19 05:28 Zosyn/Ns 4.5gm/100ml IV 200 mls/hr Q8HR KYARA Administration Protocol Morphine Sulfate 2 mg 04/20/19 06:28 04/22/19 06:07 Morphine IV 2 mg Q5MIN PRN Administration Chest Pain unrelieved by NTG Nitroglycerin 0.4 mg 04/20/19 06:28 Nitrostat SL Q5M PRN Chest Pain Ondansetron HCl 4 mg 04/20/19 06:28 Zofran IV Q8H PRN Nausea And Vomiting Sodium Chloride 10 ml 04/20/19 10:00 04/22/19 09:42 Sodium Chloride Flush Syringe 10 Ml IV 10 ml BID KYARA Administration Sodium Chloride 10 ml 04/20/19 06:28 Sodium Chloride Flush Syringe 10 Ml IV PRN PRN LINE FLUSH Sodium Chloride 10 ml 04/20/19 06:28 Sodium Chloride Flush Syringe 10 Ml IV PRN PRN LINE FLUSH
[2019-04-23] MEDS: ZOSYN/NS 4.5GM/100ML 4.5 GM/100 ML VIAL IV SCH ×3 (05:06→21:28)
[2019-04-23] MEDS: ECOTRIN PO SCH (09:52)
[2019-04-23] MEDS: SODIUM CHLORIDE FLUSH SYRINGE 10 ML IV SCH ×2 (09:52→21:24)
--- NOTE | 2019-04-23 09:52 | Progress Note ---
Assessment and Plan Assessment and plan: Atypical chest pain. Etiology likely secondary to costochondritis. Pain is reproducible with palpation. Consider stress test. Hypertension. Continue antihypertensive medications. Cavitary lesion. Pulmonary following. Continue isolation. Continue empiric IV antibiotics. Consider ID consultation. Buccal swap/culture. Sputum AFB smear and culture 3. PPD ordered. DC respiratory isolation, once smears are negative 3 History Interval history: Patient is a 49-year-old male with PMH of HTN (for wich he takes Lisinopril), who presents to the ER with complaints of chest pain 3 days. Pain is reproducible with palpation to the left chest wall. Hospitalist Physical - Constitutional Vitals: Temp Pulse Resp BP Pulse Ox 98.4 F 71 18 123/85 100 04/23/19 08:00 04/23/19 08:00 04/23/19 08:00 04/23/19 08:00 04/23/19 08:00 General appearance: Present: no acute distress - EENT Eyes: Present: PERRL, EOM intact ENT: hearing intact, clear oral mucosa, dentition normal - Neck Neck: Present: supple, normal ROM - Respiratory Respiratory effort: normal Respiratory: bilateral: CTA - Cardiovascular Rhythm: regular Heart Sounds: Present: S1 & S2. Absent: gallop, rub - Extremities Extremities: no ischemia, No edema, Full ROM - Abdominal General gastrointestinal: soft, non-tender, non-distended, normal bowel sounds - Integumentary Integumentary: Present: clear, warm, dry - Neurologic Neurologic: CNII-XII intact, moves all extremities Results - Labs CBC & Chem 7: 04/21/19 05:45 04/21/19 05:45 Labs: Laboratory Last Values WBC 6.4 K/mm3 (4.5-11.0) 04/21/19 05:45 RBC 3.97 M/mm3 (3.65-5.03) 04/21/19 05:45 Hgb 12.6 gm/dl (11.8-15.2) 04/21/19 05:45 Hct 36.8 % (35.5-45.6) 04/21/19 05:45 MCV 93 fl (84-94) 04/21/19 05:45 MCH 32 pg (28-32) 04/21/19 05:45 MCHC 34 % (32-34) 04/21/19 05:45 RDW 13.6 % (13.2-15.2) 04/21/19 05:45 Plt Count 345 K/mm3 (140-440) 04/21/19 05:45 Lymph % (Auto) 22.8 % (13.4-35.0) 04/21/19 05:45 [place] % (Auto) 14.9 % (0.0-7.3) H 04/21/19 05:45 Eos % (Auto) 2.3 % (0.0-4.3) 04/21/19 05:45 Baso % (Auto) 0.4 % (0.0-1.8) 04/21/19 05:45 Lymph # 1.5 K/mm3 (1.2-5.4) 04/21/19 05:45 [place] # 1.0 K/mm3 (0.0-0.8) H 04/21/19 05:45 Eos # 0.1 K/mm3 (0.0-0.4) 04/21/19 05:45 Baso # 0.0 K/mm3 (0.0-0.1) 04/21/19 05:45 Seg Neutrophils % 59.6 % (40.0-70.0) 04/21/19 05:45 Seg Neutrophils # 3.8 K/mm3 (1.8-7.7) 04/21/19 05:45 393.10 ng/mlDDU (0-234) H 04/20/19 02:30 Sodium 139 mmol/L (137-145) 04/21/19 05:45 Potassium 4.3 mmol/L (3.6-5.0) 04/21/19 05:45 Chloride 102.1 mmol/L (98-107) 04/21/19 05:45 Carbon Dioxide 26 mmol/L (22-30) 04/21/19 05:45 15 mmol/L 04/21/19 05:45 BUN 15 mg/dL (9-20) 04/21/19 05:45 0.9 mg/dL (0.8-1.5) 04/21/19 05:45 Estimated GFR > 60 ml/min 04/21/19 05:45 17 % 04/21/19 05:45 Glucose 96 mg/dL (75-100) 04/21/19 05:45 5.8 % (4-6) 04/20/19 06:51 Calcium 9.2 mg/dL (8.4-10.2) 04/21/19 05:45 < 0.010 ng/mL (0.00-0.029) 04/20/19 17:30 Triglycerides 48 mg/dL (2-149) 04/20/19 06:51 Cholesterol 158 mg/dL (50-199) 04/20/19 06:51 102 mg/dL (50-130) 04/20/19 06:51 54 mg/dL (40-59) 04/20/19 06:51 2.92 % 04/20/19 06:51 Active Medications - Current Medications Current Medications: Generic Name Dose Route Start Last Admin Trade Name Freq PRN Reason Stop Dose Admin Acetaminophen 650 mg 04/20/19 06:28 Tylenol PO Q4H PRN Pain MILD(1-3)/Fever >100.5/PEALYO Aspirin 325 mg 04/21/19 10:00 04/22/19 09:41 Ecotrin PO 325 mg QDAY KYARA Administration Piperacillin Sod/Tazobactam Sod 4.5 gm in 100 mls @ 200 mls/hr 04/20/19 14:00 04/23/19 05:06 Zosyn/Ns 4.5gm/100ml IV 200 mls/hr Q8HR KYARA Administration Protocol Morphine Sulfate 2 mg 04/20/19 06:28 04/22/19 06:07 Morphine IV 2 mg Q5MIN PRN Administration Chest Pain unrelieved by NTG Nitroglycerin 0.4 mg 04/20/19 06:28 Nitrostat SL Q5M PRN Chest Pain Ondansetron HCl 4 mg 04/20/19 06:28 Zofran IV Q8H PRN Nausea And Vomiting Sodium Chloride 10 ml 04/20/19 10:00 04/22/19 22:27 Sodium Chloride Flush Syringe 10 Ml IV 10 ml BID KYARA Administration Sodium Chloride 10 ml 04/20/19 06:28 Sodium Chloride Flush Syringe 10 Ml IV PRN PRN LINE FLUSH Sodium Chloride 10 ml 04/20/19 06:28 Sodium Chloride Flush Syringe 10 Ml IV PRN PRN LINE FLUSH
--- NOTE | 2019-04-23 12:02 | Progress Note ---
Assessment and Plan 49 y/o male with 2 small cavitary lung lesions. 1. Continue IV abx therapy 2. Await sputum to rule out TB, although highly unlikely. Subjective Date of service: 04/23/19 Principal diagnosis: pulmonary cavitary nodules, suspected aspiration/abscess Interval history: No acute events. Objective Vital Signs - 12hr 04/23/19 04/23/19 04/23/19 03:51 08:00 10:00 Temperature 98.4 F 98.4 F Pulse Rate 54 L 71 49 L Respiratory 18 18 Rate Blood Pressure 121/74 123/85 O2 Sat by Pulse 100 100 Oximetry Constitutional: no acute distress, alert Eyes: non-icteric ENT: oropharynx moist, other (right-sided inner buccal lesion close to 2th molar area. ) Neck: no JVD Ascultation: Bilateral: clear Cardiovascular: regular rate and rhythm Gastrointestinal: normoactive bowel sounds, non-distended Extremities: no cyanosis, no edema CBC and BMP: 04/21/19 05:45 04/21/19 05:45 ABG, PT/INR, D-dimer: PT/INR, D-dimer 393.10 ng/mlDDU (0-234) H 04/20/19 02:30 Abnormal lab findings: Abnormal Labs 04/20/19 04/20/19 04/20/19 01:17 01:28 02:30 MCHC [place] % (Auto) 12.3 H [place] # 1.0 H D-Dimer 393.10 H Sodium 136 L Chloride 95.7 L BUN 24 H Glucose 171 H 04/20/19 04/20/19 04/21/19 06:51 06:51 05:45 MCHC 35 H [place] % (Auto) 14.8 H 14.9 H [place] # 1.2 H 1.0 H D-Dimer Sodium 136 L Chloride BUN 23 H Glucose
[2019-04-24] MEDS: ZOSYN/NS 4.5GM/100ML 4.5 GM/100 ML VIAL IV SCH (05:29)
[2019-04-24 08:13] VITALS: BP 101/66
[2019-04-24] MEDS: ECOTRIN PO SCH (09:56)
[2019-04-24] MEDS: SODIUM CHLORIDE FLUSH SYRINGE 10 ML IV SCH (09:57)
[2019-04-24 11:19] LABS: Myeloperoxidase Antibody <1.0 AI (<1.0)
--- NOTE | 2019-04-24 11:52 | Progress Note ---
Assessment and Plan 49 y/o male with 2 small cavitary lung lesions. 1. Switch patient to augment 875 BID. Treat for a total of 30 days including what he has had in the hospital 2. I will see him as an outpatient in 1 months time post follow up with CT scan to see if areas have improved or worsened Subjective Date of service: 04/24/19 Principal diagnosis: pulmonary cavitary nodules, suspected aspiration/abscess Interval history: No acute events. patient really wants to go home. Chest pain is better. One sputum sample is growing budding yeast but has not speciated yet. No family at bedside. Objective Vital Signs - 12hr 04/24/19 04/24/19 04/24/19 00:25 04:45 04:50 Temperature 98.7 F 98.7 F Pulse Rate 59 L 61 Respiratory 16 17 Rate Blood Pressure 122/85 115/79 O2 Sat by Pulse 100 99 Oximetry 04/24/19 07:39 Temperature 98.2 F Pulse Rate 58 L Respiratory 18 Rate Blood Pressure 101/66 O2 Sat by Pulse 99 Oximetry Constitutional: no acute distress, alert Eyes: non-icteric ENT: oropharynx moist, other (right-sided inner buccal lesion close to 2th molar area. ) Neck: no JVD Ascultation: Bilateral: clear Cardiovascular: regular rate and rhythm Gastrointestinal: normoactive bowel sounds, non-distended Extremities: no cyanosis, no edema CBC and BMP: 04/21/19 05:45 04/21/19 05:45 ABG, PT/INR, D-dimer: PT/INR, D-dimer 393.10 ng/mlDDU (0-234) H 04/20/19 02:30 Abnormal lab findings: Abnormal Labs 04/20/19 04/20/19 04/20/19 01:17 01:28 02:30 MCHC Peach % (Auto) 12.3 H Peach # 1.0 H D-Dimer 393.10 H Sodium 136 L Chloride 95.7 L BUN 24 H Glucose 171 H 04/20/19 04/20/19 04/21/19 06:51 06:51 05:45 MCHC 35 H Peach % (Auto) 14.8 H 14.9 H Peach # 1.2 H 1.0 H D-Dimer Sodium 136 L Chloride BUN 23 H Glucose
--- NOTE | 2019-04-24 12:40 | Discharge Summary ---
Providers - Providers Date of Admission: 04/20/19 06:28 Date of discharge: 04/24/19 Attending physician: TAMERA THORNTON 04/20/19 Consult to Cardiac Rehabilitation [CONS] Routine Reason For Exam: Phase I 04/20/19 05:43 Consult to Physician [CONS] Urgent Comment: Dr. Mcgrath spoke with Dr. Hansen @ 0536 Consulting Provider: DYLON HANSEN Physician Instructions: Reason For Exam: lung cavitary lesion Primary care physician: RED AVILEZ RN Hospitalization Condition: Fair Hospital course: Patient is a 49-year-old male with hypertension presented to the Emergency Department with complaints of chest pain 3 days. Patient stated that he had a very heavy work few days before, he lifted a lot of heavy weights including greater than 100 pounds by himself, the pain started the following day. He also complained of mild cough. Patient denied tobacco use but stated that he uses marijuana. CT Chest revealed two 1cm cavitary nodules in left lung. He was started on Zosyn and admitted to telemetry with airborne precautions to r/o tuberculosis. Patient was evaluated by Pulmonology. Sputum was growing yeast. Dr. Collins, Pulmonology stated tuberculosis is unlikely given clinical picture and recommended discharge home on Augmentin for 30 days to follow with Pulmonology as outpatient. He was therefore discharged home on 04/24/19. Total time spent on discharge,32 mins Disposition: DC-01 TO HOME OR SELFCARE - Discharge Diagnoses (1) HTN (hypertension) Status: Acute (2) Left-sided chest pain Status: Acute (3) Marijuana use Status: Acute (4) Cavitary lesion of lung Status: Acute (5) Costochondritis, acute Status: Acute Core Measure Documentation - Palliative Care Palliative Care/ Comfort Measures: Not Applicable - Core Measures Any of the following diagnoses?: none Exam - Constitutional Vitals: Temp Pulse Resp BP Pulse Ox 98.2 F 58 L 18 101/66 99 04/24/19 07:39 04/24/19 07:39 04/24/19 07:39 04/24/19 07:39 04/24/19 07:39 Plan Activity: no restrictions Diet: regular Additional Instructions: 1.Follow up with PCP ion 1 week. 2.Follow up with Dr. Collins in office in 1 month Follow up with: RED AVILEZ, RN [Primary Care Provider] - 7 Days Prescriptions: Amoxicillin/Potassium Clav [Augmentin 875-125 Tablet] 1 each PO BID #60 tablet
[2019-04-24] MEDS ORDERED: AUGMENTIN 875 MG PO SCH (22:00)
== END 2019-04-24 17:10 | disposition home or self-care (01) | DRG 206 ==
LOC: ED 01:04 → SUATTDRO 01:04 → 4A 06:28
PROVIDERS: ADMIT Internal Medicine; ATTEND Internal Medicine
DX: J98.4 Other disorders of lung (principal); I10 Essential (primary) hypertension; F12.90 Cannabis use, unspecified, uncomplicated; K05.219 Aggressive periodontitis, localized, unspecified severity; R91.1 Solitary pulmonary nodule; R07.89 Other chest pain
CPT/HCPCS: 36415; 71045; 71275; 80048; 80061; 82164; 83036; 84484; 85025; 85379; 86021; 87102; 87220; 88112; 88312; 93005; 93010; 96360; G0378; J2270; J2543; J7030; Q9967